=== PATIENT | female | born 1965 | race Native Hawaiian/Other Pacific Islander ===

== ENCOUNTER 2022-08-24 09:30 | Outpatient (CLI) | payer OTHER | END 2022-08-24 20:47 | disposition home or self-care (01) | LOC: MAMMO 09:30 | PROVIDERS: ATTEND Registered Nurse | DX: Z12.31 Encounter for screening mammogram for malignant neoplasm of breast (principal) ==

== ENCOUNTER 2022-11-26 15:18 | Outpatient (CLI) | payer OTHER | END 2022-11-26 20:01 | disposition home or self-care (01) | LOC: US 15:18 | PROVIDERS: ATTEND Registered Nurse | DX: E03.8 Other specified hypothyroidism (principal) ==